=== PATIENT | male | born 1980 | race Two or more races ===

== ENCOUNTER 2016-09-19 07:20 | Emergency (ER) | payer MEDICAID ==
[~2016-09-19] VITALS: Ht 175.3 cm; Wt 143.8 kg
[2016-09-19 07:48] VITALS: BP 159/93
[2016-09-19] MEDS ORDERED: LIDOCAINE 2%HCL (LOCAL ANESTH.) INJ 20ML MDV ONE (08:13)
[2016-09-19] MEDS ORDERED: cefTRIAXone SOD 1,000 MG VL IM ONE (08:15)
[2016-09-19] MEDS ORDERED: methylPREDNISolone SOD SUCC 125 MG/2 ML VL IM ONE (08:15)
== END 2016-09-19 08:39 | disposition home or self-care (01) ==
LOC: ER 07:20
DX: J03.90 Acute tonsillitis, unspecified (principal)
CPT/HCPCS: 96372; 99284; J0696; J2930

== ENCOUNTER 2016-10-16 14:10 | Emergency (ER) | payer MEDICAID ==
[~2016-10-16] VITALS: Ht 175.3 cm; Wt 143.8 kg
[2016-10-16 16:07] VITALS: BP 187/98
[2016-10-16] MEDS ORDERED: methylPREDNISolone SOD SUCC 125 MG/2 ML VL IM ONE (16:30)
== END 2016-10-16 17:26 | disposition home or self-care (01) ==
LOC: ER 14:10
DX: J03.90 Acute tonsillitis, unspecified (principal)
CPT/HCPCS: 96372; 99283; J2930